=== PATIENT | female | born 1990 | race Caucasian/White ===

== ENCOUNTER 2016-07-21 05:07 | Emergency (ER) | payer OTHER ==
[2016-07-21] MEDS ORDERED: Sodium Chloride 0.9% 1,000 ML IV ONE (06:16)
--- NOTE | 2016-07-21 06:16 | C.PDOC ---
History Of Present Illness Pt presents with mid epigastric discomfort and cramping worsening over the last 2-3 days. Pt is approximately 13 weeks . Pt is Time Seen by Provider: 07/21/16 05:14 Chief Complaint (Nursing): Abdominal Pain History Per: Patient History/Exam Limitations: no limitations Onset/Duration Of Symptoms: Days Current Symptoms Are (Timing): Still Present Context: Other Severity: Moderate Pain Scale Rating Of: 4 Location Of Pain/Discomfort: Periumbilical Radiation Of Pain To:: None Quality Of Discomfort: Dull, Cramping Associated Symptoms: denies: Fever, Chills Exacerbating Factors: denies: Cough Alleviating Factors: None Last Bowel Movement: Yesterday Recent travel outside of the [place]: No Additional History Per: Family Past Medical History Reviewed: Historical Data, Nursing Documentation, Vital Signs Vital Signs: Last Vital Signs Temp 98.2 F 07/21/16 05:15 Pulse 66 07/21/16 05:15 Resp 20 07/21/16 05:15 BP 102/63 07/21/16 05:15 Pulse Ox 99 07/21/16 06:27 Family History: States: No Known Family Hx - Social History Hx Alcohol Use: No Hx Substance Use: No - Immunization History Hx Tetanus Toxoid Vaccination: No Hx Influenza Vaccination: No Hx Pneumococcal Vaccination: No Review Of Systems Constitutional: Negative for: Fever, Chills Eyes: Negative for: Redness ENT: Negative for: Throat Pain Cardiovascular: Negative for: Chest Pain Respiratory: Negative for: Shortness of Breath Gastrointestinal: Positive for: Abdominal Pain. Negative for: Nausea, Vomiting Genitourinary: Negative for: Dysuria Musculoskeletal: Negative for: Back Pain Skin: Negative for: Rash, Lesions, Jaundice, Bruising Neurological: Negative for: Weakness Psych: Negative for: Anxiety Physical Exam - Physical Exam Appears: Non-toxic, No Acute Distress Skin: Warm, Dry Oral Mucosa: Moist Neck: Supple Chest: Symmetrical Cardiovascular: Rhythm Regular Respiratory: No Rales, No Rhonchi, No Wheezing Gastrointestinal/Abdominal: Soft, Tenderness (mid epigastric) Back: Normal Inspection Extremity: Normal ROM Extremity: Bilateral: Atraumatic, Normal Color And Temperature Neurological/Psych: Oriented x3, Normal Speech, Normal Cognition Gait: Steady ED Course And Treatment O2 Sat by Pulse Oximetry: 99 Pulse Ox Interpretation: Normal Progress Note: blood work, pelvic US Disposition Counseled Patient/Family Regarding: Studies Performed, Diagnosis - Disposition Disposition Time: 06:16 Condition: FAIR - Clinical Impression Clinical Impression: Abdominal pain, Nausea Physician Patient Turnover Patient Signed Over To: Elif Velez Handoff Comments: pending Labs, US and disposition
[2016-07-21] MEDS ORDERED: Sodium Chloride 0.9% 1,000 ML ONE (06:55)
[2016-07-21 06:58] LABS: RBC URINE 1 /hpf (0-3); URINE BILIRUBIN NEGATIVE (NEGATIVE); URINE BLOOD NEGATIVE (NEGATIVE); URINE COLOR Yellow (YELLOW); URINE GLUCOSE (UA) NORMAL (Normal); URINE KETONE NEGATIVE (NEGATIVE); URINE LEUKOCYTE ESTERASE NEG Leu/uL (Negative); URINE PROTEIN NEGATIVE (NEGATIVE); URINE UROBILINOGEN NORMAL mg/dL (0.2-1.0); WBC URINE 1 /hpf (0-5)
[2016-07-21 07:03] LABS: BASO # 0.1 K/uL (0.0-0.2); EOS % 0.5 % (0.0-4.0); HEMATOCRIT 29.9 % (34.0-47.0); LYMPH # 1.6 K/uL (1.0-4.3); LYMPH % 17.1 % (20.0-40.0); MEAN PLATELET VOLUME 8.8 fL (7.2-11.7); MONO # 0.4 K/uL (0.0-0.8); MONO % 4.2 % (0.0-10.0); RED CELL DISTRIBUTION WIDTH 13.7 % (11.5-14.5); WHITE BLOOD COUNT 9.4 K/uL (4.8-10.8)
[2016-07-21 07:41] LABS: CHLORIDE 103 mmol/L (98-107)
[2016-07-21 07:42] LABS: POTASSIUM 4.1 mmol/L (3.6-5.2); SODIUM 134 mmol/L (132-148)
[2016-07-21 07:44] LABS: AST/SGOT 36 U/L (14-36); BILIRUBIN,TOTAL 0.7 mg/dL (0.2-1.3); CARBON DIOXIDE 25 mmol/L (22-30); GFR AFRICAN-AMERICAN > 60
[2016-07-21 07:45] LABS: ALB/GLOB RATIO 1.1 (1.0-2.1); ALKALINE PHOSPHATASE 28 U/L (38-126); ALT/SGPT 34 U/L (9-52); BLOOD UREA NITROGEN 8 mg/dL (7-17); CALCIUM 8.3 mg/dl (8.6-10.4); GLUCOSE,RANDOM 80 mg/dL (65-105); TOTAL PROTEIN 6.5 g/dL (6.3-8.3)
[2016-07-21 08:53] VITALS: BP 98/65; PULSE 61; RESP 18; TEMP 98.1; O2SAT 100
--- NOTE | 2016-07-21 09:09 | US ---
Pelvic ultrasound History: . Pain. Comparison: None available. Technique: Real-time sonography was performed through the pelvis. Findings: Uterus: 10.1 x 6.3 x 9.3 centimeters. Anteverted. Heterogeneous echotexture. Intrauterine . Intrauterine gestational sac noted. [place]-rump length measures 6.2 centimeters corresponding to a gestational age of 12 weeks and 3 days. heart rate of 163 beats per minute. No free fluid in the pelvic cul-de-sac. Right ovary: 3.4 x 3.4 x 3.0 centimeters. Normal flow. Left ovary: 3.8 x 1.8 x 2.1 centimeters. Normal flow. Impression: Viable intrauterine corresponding to a gestational age of 12 weeks and 3 days with crown-rump length of 6.2 centimeters. heart rate of 163 beats per minute. Limited 1st trimester ultrasound for viability purposes only. Continued interval followup with serial ultrasound, serial HCG levels, and gynecological consultation would be helpful if clinically indicated.
== END 2016-07-21 09:30 | disposition home or self-care (01) ==
LOC: MERGE 05:07 → C.ER 05:07
DX: O26.891 Other specified pregnancy related conditions, first trimester (principal); Z3A.12 12 weeks gestation of pregnancy; R10.9 Unspecified abdominal pain; R11.0 Nausea
CPT/HCPCS: 76801; 80053; 81001; 83690; 84703; 85025; 85610; 85730; 96360; 99285; J7040

== ENCOUNTER 2016-11-04 15:29 | Emergency (ER) | payer OTHER ==
[2016-11-04] MEDS ORDERED: Lactated Ringer's 1,000 ML IV ONE (15:59)
[2016-11-04 16:20] LABS: BASO % 0.2 % (0.0-2.0); EOS # 0.1 K/uL (0.0-0.7); EOS % 0.5 % (0.0-4.0); HEMATOCRIT 31.9 % (34.0-47.0); LYMPH # 1.2 K/uL (1.0-4.3); LYMPH % 10.4 % (20.0-40.0); MEAN CELL VOLUME 78.3 fL (81.0-99.0); MEAN CORPUSCULAR HEMOGLOBIN 24.8 pg (27.0-31.0); MEAN CORPUSCULAR HGB CONC 31.6 g/dL (33.0-37.0); MEAN PLATELET VOLUME 9.1 fL (7.2-11.7); MONO # 0.7 K/uL (0.0-0.8); MONO % 6.1 % (0.0-10.0); NRBC % 0.1 % (0.0-2.0); RED CELL DISTRIBUTION WIDTH 12.7 % (11.5-14.5); WHITE BLOOD COUNT 11.6 K/uL (4.8-10.8)
--- NOTE | 2016-11-04 16:29 | OBHP ---
Datetime: 11/04/2016 16:21 IP Adm Impression: , intrauterine IP Admit Plan: Discharge home Admit Comment, IP Provider: 26 y/o @ 28.1 wks GA reports nause and vomiting x 1 day, non blo phan and no bloius after [place] pizza [place] [address]. pt also reports few episodes of loose bm. pt denies any fever, chills, cp, sob, dizzyness, lighhteadness, ctx, lof, vb and reports normal movements. pt reprots she had some minor abodminal discomofrt which has improved. Pt denies any dysuira, rugency or frequency. Pt reports she tolerated some water this afternoon. 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 hx of abnormal pa, fibroids, ovarian syst, hx o chylamdia 2007 treated PMH: denies PSH: DxC x 1 FH:X non contributory MEDS: PNV Every other day when she can remember ALLERGY: NKDA SHX: + tobacco 1 cigarrette/day (last month de), denies etoh/ivda A/P 26 y/o @ 28.1 wks with gastroenteritis, currently stable -labs; CBC, CMP, amylase, lipase -IVH -po challenge -efm/toco -f/u PCP within 1 week , precatuiosn given Pelvic Type - PN: Adequate Extremities - PN: Normal Abdomen - PN: Normal Back - PN: Normal Breast - PN: Not Done Lungs - PN: Normal Heart - PN: Normal Thyroid - PN: Normal Neurologic - PN: Normal HEENT - PN: Normal General - PN: Normal Presentation-Admit: Vertex FHR - Baseline A Provider: 140 Contraction Comments Provider: irritalibty Comments, ACOG Physical Exam: Abd; soft, gravid, nt/nd no guarding, no reobud tnedneres, no rigiditi y, negatiev mruphys sign Gestation - Est Wks by US: 28.1 EGA AdmitDate IP: 28.1 Vital Signs Provider: Reviewed; Within Normal Limits IP Chief Complaint: Other NICHD Variability Prov Fetus A: Moderate 6-25bpm FHR Category Provider Fetus A: Category I NICHD Decel Fetus A IP Provider: None Dilatation, Provider: 0 Effacement, Provider: 0 Station, Provider: -3 Genitourinary Exam: Normal DTRs - PN: Normal
[2016-11-04 16:34] LABS: ALB/GLOB RATIO 0.9 (1.0-2.1); ALKALINE PHOSPHATASE 55 U/L (38-126); ALT/SGPT 25 U/L (9-52); AMYLASE 96 U/L (30-110); AST/SGOT 22 U/L (14-36); BILIRUBIN,TOTAL 0.5 mg/dL (0.2-1.3); BLOOD UREA NITROGEN 13 mg/dL (7-17); CALCIUM 9.3 mg/dl (8.6-10.4); CARBON DIOXIDE 19 mmol/L (22-30); CHLORIDE 103 mmol/L (98-107); GFR AFRICAN-AMERICAN > 60; GLUCOSE,RANDOM 85 mg/dL (65-105); POTASSIUM 3.8 mmol/L (3.6-5.2); SODIUM 133 mmol/L (132-148); TOTAL PROTEIN 6.8 g/dL (6.3-8.3)
[2016-11-04 16:35] LABS: RBC URINE 4 /hpf (0-3); URINE BACTERIA RARE (<OCC); URINE BILIRUBIN NEGATIVE (NEGATIVE); URINE BLOOD NEGATIVE (NEGATIVE); URINE COLOR Yellow (YELLOW); URINE GLUCOSE (UA) NORMAL (Normal); URINE KETONE NEGATIVE (NEGATIVE); URINE LEUKOCYTE ESTERASE NEG Leu/uL (Negative); URINE PROTEIN NEGATIVE (NEGATIVE); URINE UROBILINOGEN NORMAL mg/dL (0.2-1.0); WBC URINE 1 /hpf (0-5)
[2016-11-04] MEDS ORDERED: Dextrose 5%/Lactated Ringer's 1,000 ML IV SCH (18:00)
[2016-11-06 14:19] VITALS: BP 128/69; PULSE 76
== END 2016-11-04 18:33 | disposition home or self-care (01) ==
LOC: C.EROB 15:29
DX: O26.893 Other specified pregnancy related conditions, third trimester (principal); K52.9 Noninfective gastroenteritis and colitis, unspecified; Z3A.28 28 weeks gestation of pregnancy
CPT/HCPCS: 80053; 81001; 82150; 83690; 85025; 99283; J7120

== ENCOUNTER 2018-01-09 18:58 | Emergency (ER) | payer OTHER ==
[2018-01-09 19:09] VITALS: BP 137/81; PULSE 77; RESP 18; TEMP 98.1; O2SAT 99
[2018-01-09] MEDS ORDERED: Albuterol 0.083% Inhal Sol (2.5 mg/3 mL) UD ONE (19:46)
[2018-01-09] MEDS ORDERED: Albuterol-Ipratrop 3 mg / 0.5 (3 ml) UD ONE (19:46)
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
--- NOTE | 2018-01-10 08:47 | RAD ---
Date of service: 01/09/2018 PROCEDURE: Cervical Spine Radiographs. HISTORY: Pain. COMPARISON: None available. FINDINGS: The open mouth view of the C1-C2 is suboptimal. BONES: Alignment maintained. No fracture. Dens Intact. Straightening of the cervical spine which could be due to muscle spasm. DISC SPACES: Normal. SOFT TISSUES: Normal. No prevertebral soft tissue swelling. OTHER FINDINGS: None. IMPRESSION: No evidence of acute displaced fracture or subluxation straightening of the cervical spine.
== END 2018-01-09 20:31 | disposition home or self-care (01) ==
LOC: C.ER 18:58
DX: S16.1XXA Strain of muscle, fascia and tendon at neck level, initial encounter (principal); V49.9XXA Car occupant (driver) (passenger) injured in unspecified traffic accident, initial encounter

== ENCOUNTER 2018-06-03 12:16 | Emergency (ER) | payer OTHER ==
[2018-06-03 12:42] VITALS: BMI 27.3
[2018-06-03 12:49] VITALS: BP 138/73; PULSE 79; RESP 17; TEMP 98.7; O2SAT 100
--- NOTE | 2018-06-03 13:50 | C.PDOC ---
History Of Present Illness 28 y/o female presents to the ED complaining of bilateral mid-back pain for the last 3 days. Pain is described as constant, and progressively worsening. Patient reports history of a kidney infection in 2008, and feels like current pain is similar. She also complains of a subjective fever, vomiting, and mild headache. Otherwise patient denies any dysuria, hematuria, diarrhea, abdominal pain, numbness, or weakness. Patient did not take any pain medication prior to arrival. Time Seen by Provider: 06/03/18 13:10 Chief Complaint (Nursing): Female Genitourinary History Per: Patient History/Exam Limitations: no limitations Onset/Duration Of Symptoms: Days (x 3) Current Symptoms Are (Timing): Still Present Associated Symptoms: None Past Medical History Reviewed: Historical Data, Nursing Documentation, Vital Signs Vital Signs: Last Vital Signs Temp 98.7 F 06/03/18 12:42 Pulse 79 06/03/18 12:42 Resp 17 06/03/18 12:42 BP 138/73 06/03/18 12:42 Pulse Ox 100 06/03/18 12:42 - Medical History PMH: Anemia Family History: States: Unknown Family Hx - Social History Hx Alcohol Use: Yes Hx Substance Use: No - Immunization History Hx Tetanus Toxoid Vaccination: No Hx Influenza Vaccination: No Hx Pneumococcal Vaccination: No Review Of Systems Except As Marked, All Systems Reviewed And Found Negative. Constitutional: Positive for: Fever. Negative for: Weakness Cardiovascular: Negative for: Chest Pain Respiratory: Negative for: Cough, Shortness of Breath Gastrointestinal: Positive for: Nausea, Vomiting. Negative for: Diarrhea Genitourinary: Negative for: Dysuria, Frequency, Incontinence, Hematuria Musculoskeletal: Positive for: Back Pain Skin: Negative for: Rash Neurological: Positive for: Headache. Negative for: Weakness, Numbness, Incoordination Physical Exam - Physical Exam Appears: Non-toxic, In Acute Distress (mild) Skin: Warm, Dry, No Rash Head: Atraumatic, Normacephalic Eye(s): bilateral: Normal Inspection, PERRL, EOMI Oral Mucosa: Moist Neck: Normal ROM Chest: Symmetrical, No Tenderness Cardiovascular: Rhythm Regular, No Murmur Respiratory: Normal Breath Sounds, No Accessory Muscle Use, Other (NARD) Gastrointestinal/Abdominal: Soft, No Tenderness, No Distention Back: No CVA Tenderness, No Vertebral Tenderness, Other (Full ROM) Extremity: Bilateral: Atraumatic, Normal ROM (x 4) Pulses: Left Dorsalis Pedis: Normal, Right Dorsalis Pedis: Normal Neurological/Psych: Oriented x3, Normal Speech ED Course And Treatment O2 Sat by Pulse Oximetry: 100 (RA) Pulse Ox Interpretation: Normal Reevaluation Time: 14:36 Reassessment Condition: Improved (PT NOW STATES NV ONSET AFTER EATING FOOD AT [employer]. FEELS BETTER. PT OFFERED LABS, CT FOR FURTHER EVAL BUT DOES NOT WISH ADDL TESTING. AGREES W DC, FU PMD) Medical Decision Making Medical Decision Making: Initial Impression: Back Pain, Vomiting Initial Plan: - Urinalysis - Urine HCG - 4 mg PO Zofran - 60 mg IM Toradol - Reassess Disposition Counseled Patient/Family Regarding: Studies Performed, Diagnosis, Need For Followup, Rx Given - Disposition Referrals: [facility] [Outside] [facility] [Outside] [facility] [Other] Disposition: HOME/ ROUTINE Disposition Time: 14:37 Condition: IMPROVED Prescriptions: Cyclobenzaprine [Flexeril] 10 mg PO TID #15 tab Ibuprofen [Motrin] 600 mg PO Q6 #30 tab Ondansetron ODT [Zofran ODT] 4 mg PO TID PRN #12 odt PRN Reason: Nausea/Vomiting Instructions: Low Back Pain (DC), Nausea and Vomiting, Adult (DC) Forms: Work/School/Gym Excuse, [facility] (Vietnamese) - Clinical Impression Clinical Impression: Nausea, Back pain - Scribe Statement The provider has reviewed the documentation as recorded by the Bette Wheeler Provider Attestation: All medical record entries made by the Leslyibkel were at my direction and personally dictated by me. I have reviewed the chart and agree that the record accurately reflects my personal performance of the history, physical exam, medical decision making, and the department course for this patient. I have also personally directed, reviewed, and agree with the discharge instructions and disposition.
[2018-06-03 13:58] LABS: HCG,QUALITATIVE URINE NEGATIVE (NEGATIVE)
[2018-06-03 14:13] LABS: SQUAMOUS EPITHIAL 8 /hpf (0-5)
[2018-06-03 14:15] LABS: URINE BILIRUBIN NEGATIVE (NEGATIVE); URINE BLOOD 2+ (NEGATIVE); URINE CLARITY Hazy (Clear); URINE COLOR Yellow (YELLOW); URINE GLUCOSE (UA) NORMAL (Normal); URINE LEUKOCYTE ESTERASE NEG Leu/uL (Negative); URINE PROTEIN NEGATIVE (NEGATIVE)
== END 2018-06-03 14:55 | disposition home or self-care (01) ==
LOC: C.ER 12:16
DX: M54.9 Dorsalgia, unspecified (principal); R11.2 Nausea with vomiting, unspecified
CPT/HCPCS: 81001; 84703; 87086; 87181; 96372; 99283; J1885